=== PATIENT | female | born 1965 | race Caucasian/White ===

== ENCOUNTER 2018-03-29 12:34 | Emergency (ER) | payer MEDICARE ==
[2018-03-29] MEDS: DIPHTH/TET/ACEL PERTUSS (ADULT) 0.5 ML VIAL IM* (13:31)
[2018-03-29] MEDS: LIDOCAINE 1% (MPF) 5 ML VIAL SC (13:34)
[2018-03-29] MEDS: LIDOCAINE 1% (MDV) 20 ML INJ SC (13:34)
== END 2018-03-29 14:00 | disposition home or self-care (01) ==
LOC: FTE 12:34
DX: S61.012A Laceration without foreign body of left thumb without damage to nail, initial encounter (principal); W26.0XXA Contact with knife, initial encounter; Y92.9 Unspecified place or not applicable; Z23 Encounter for immunization
CPT/HCPCS: 90471; 90715; 99283-25